=== PATIENT | male | born 1980 | race African-American/Black ===

== ENCOUNTER 2020-07-02 08:45 | Emergency (ER) | payer SELFPAY ==
[2020-07-02 10:17] LABS: APPEARANCE,URINE CLOUDY; BILIRUBIN,URINE NEGATIVE (NEGATIVE); COLOR,URINE YELLOW; GLUCOSE, URINE NEGATIVE (NEGATIVE); KETONES,URINE NEGATIVE (NEGATIVE); LEUKOCYTE ESTERASE,URINE LARGE (NEGATIVE); NITRITE,URINE NEGATIVE (NEGATIVE); PROTEIN,URINE NEGATIVE (NEGATIVE); URINE SPECIFIC GRAVITY 1.017; UROBILINOGEN,URINE NEGATIVE mg/dL (<2.0)
[2020-07-02] MEDS ORDERED: CEFTRIAXONE INJ 250 MG VIAL IM ONE (10:28)
[2020-07-02] MEDS ORDERED: LIDOCAINE 1% INJ-PF (10 MG/ML) 30 ML SDV INJ ONE (10:28)
[2020-07-02] MEDS ORDERED: AZITHROMYCIN 250 MG TABLET PO ONE (10:28)
--- NOTE | 2020-07-02 10:28 | ER Document Report ---
HPI - HPI Time Seen by Provider: 07/02/20 10:08 Pain Level: 4 Context: Patient is a 40-year-old male who presents emergency department with a chief complaint of penile discharge. Patient reports 6 days ago he had unprotected sex. Patient reports during the act of intercourse and with different movements he developed a pain to the penis reports a possible injury. Patient reports 3 to 4 days ago he did develop pain with urination, penile discharge is yellow. Patient denies testicular pain. Patient reports that he feels irritation when his bladder is full to the pelvic area. Patient denies deformity or bruising to the penis. Patient reports he had similar symptoms 20 years ago when he was diagnosed with gonorrhea. - REPRODUCTIVE Reproductive: DENIES: : Past Medical History - General Information source: Patient - Social History Smoking Status: Current Every Day Smoker Frequency of alcohol use: None Drug Abuse: None Lives with: Family Family History: None - Past Medical History Cardiac Medical History: Reports: None Pulmonary Medical History: Reports: None EENT Medical History: Reports: None Neurological Medical History: Reports: None Endocrine Medical History: Reports: None Renal/ Medical History: Reports: None Malignancy Medical History: Reports None GI Medical History: Reports: None Musculoskeletal Medical History: Reports None Skin Medical History: Reports None Psychiatric Medical History: Reports: None Traumatic Medical History: Reports: None Infectious Medical History: Reports: None Surgical Hx: Negative Vertical Provider Document - CONSTITUTIONAL Agree With Documented VS: Yes Exam Limitations: No Limitations General Appearance: No Apparent Distress - HEENT HEENT: Atraumatic, Normocephalic, PERRLA - RESPIRATORY Respiratory: Breath Sounds Normal, No Respiratory Distress - CARDIOVASCULAR Cardiovascular: Regular Rate, Regular Rhythm - GI/ABDOMEN Gastrointestinal: Abdomen Soft, Abdomen Non-Tender, Normal Bowel Sounds - REPRODUCTIVE Notes: Margie Fields RN. Patient is circumcised. With retraction of the foreskin did reveal large amount of yellow purulent drainage. No lesions. No testicular pain with palpation bilaterally. No tenderness to the penis with palpation. - MUSCULOSKELETAL/EXTREMETIES Musculoskeletal/Extremeties: FROM, Non-Tender, No Edema - NEURO Level of Consciousness: Awake, Alert, Appropriate - DERM Integumentary: Warm, Dry, No Rash Course - Re-evaluation Re-evalutation: 07/02/20 10:58 Patient reports since the possible injury 6 days ago he has had an erection without any issues. Does report mild pain to the middle of his penis. Denies bruising or swelling. I did inform the patient to follow-up with urology, patient is not from this area and lives in another town. I did inform him following up with urology as they could further evaluate if there is any damage. There is no acute emergency noted from his physical examination or history. The patient develops any worsening symptoms please return to the emergency department. - Laboratory Results Laboratory Results Interpreted: 07/02/20 08:51 Urine Blood SMALL H Ur Leukocyte Esterase LARGE H 07/02/20 10:27 Laboratory 07/02/20 08:51 Urine Color YELLOW Urine Appearance CLOUDY Urine pH 6.0 Ur Specific [place] 1.017 Urine Protein NEGATIVE Urine Glucose (UA) NEGATIVE Urine Ketones NEGATIVE Urine Blood SMALL H Urine Nitrite NEGATIVE Urine Bilirubin NEGATIVE Urine Urobilinogen NEGATIVE Ur Leukocyte Esterase LARGE H Urine WBC (Auto) 155 Urine RBC (Auto) 11 Urine WBC Clumps MANY Squamous Epi Cells Auto 1 Urine Mucus (Auto) RARE Urine Ascorbic Acid NEGATIVE Patient has a large amount of leukocytes and 155 WBCs in the urine. Critical Laboratory Results Reviewed: No Critical Results - Radiology Results Critical Radiology Results Reviewed: No Critical Results Discharge - Discharge Clinical Impression: Penile discharge Urinary tract infection Qualifiers: Urinary tract infection type: acute cystitis Hematuria presence: with hematuria Qualified Code(s): N30.01 - Acute cystitis with hematuria Condition: Stable Disposition: HOME, SELF-CARE Additional Instructions: *Today was in the emergency department for a possible STI exposure. You were treated prophylactically for gonorrhea and chlamydia. Your cultures are pending. You will be contacted if they are positive. If they are positive please contact your sexual partner or partners to make sure that they are treated. Please refrain from sexual intercourse until your symptoms have improved and at least 14 days. You did have a large amount of bacteria in the urine. This could be related to the amount of discharge, I will place you on Macrobid which is an antibiotic. Please take this twice a day for the next 5 days. This is to treat a urinary tract infection since you are having some bladder fullness. Please make sure you are drinking plenty of fluids. If you do develop inability to have an erection, penile swelling, testicular pain or swelling please return to the emergency department immediately. *Due to your penile pain with erection. I would follow-up with urology. Urinary Tract Infection Your evaluation indicates that you have a urinary tract infection. This is due to germs growing in the bladder. This is a common problem. This infection usually responds quickly to antibiotics. Your antibiotic should be taken exactly as prescribed. Drink plenty of fluids -- three to four quarts a day. Occasionally, a bladder anesthetic will be prescribed to help stop the feeling of urgency until the antibiotic has a chance to clear the infection. This may cause your urine to be dark orange. Certain urine infections require a culture. If the doctor obtained a culture, the results will be back in two days. You should call to see if a change in treatment is needed. A repeat urinalysis after you finish treatment is often recommended. The physician will let you know if further testing is required. Call the doctor if you develop fever, chills, flank pain, inability to urinate, or blood in the urine. Prescriptions: Nitrofurantoin Monohyd/M-Cryst [Macrobid 100 mg Capsule] 100 mg PO BID #10 cap Referrals: [facility]AL[facility],NO [Primary Care Provider] - Follow up as needed
[2020-07-02 12:17] LABS: CHLAM PCR NOT DETECTED (NOT DETECT)
== END 2020-07-02 11:15 | disposition home or self-care (01) ==
LOC: ER 08:45
DX: R36.9 Urethral discharge, unspecified (principal); N30.01 Acute cystitis with hematuria; N48.89 Other specified disorders of penis; F17.200 Nicotine dependence, unspecified, uncomplicated
CPT/HCPCS: 99284; 96372; 81001; 87491; 87591; J3490; J0696